=== PATIENT | male | born 1960 | race African-American/Black ===

== ENCOUNTER 2017-02-15 13:20 | Day surgery (SDC) | payer OTHER ==
[2017-02-12 10:24] VITALS: BMI 29.7
[2017-02-15 13:45] VITALS: TEMP 98.1
[2017-02-15] MEDS ORDERED: LIDOCAINE HCL 1%, 10 MG/ML (20ML VIAL) ONE (14:23)
--- NOTE | 2017-02-15 14:38 | HP ---
Satellite PMH - Chief Complaint History of Present Illness: 56 year old man with renal transplant and old HeRO graft in left arm which is now thrombosed. Recent Cr 1.4 History Source: Patient Limitations to Obtaining History: No Limitations - Past Medical History Allergies/Adverse Reactions: Allergies Allergy/AdvReac Type Severity Reaction Status Date / Time No Known Drug Allergies Allergy Verified 02/12/17 10:24 Cardiovascular: Yes: HTN Pulmonary: Yes: Pulmonary Embolus, Other Hepatobiliary: Yes: Hepatitis C Renal/: Yes: Renal Failure Heme/Onc: Yes: Anemia - Current Medications Current Medications: Home Medications Medication Instructions Recorded Simvastatin [Zocor -] 20 mg PO HS 08/30/14 Methadone [Dolophine -] 70 mg PO DAILY 08/31/14 Aspirin [Aspirin EC] 81 mg PO DAILY 02/12/17 Famotidine [Pepcid] 20 mg PO DAILY 02/12/17 Hydrochlorothiazide [Hctz -] 12.5 mg PO DAILY 02/12/17 Isosorbide Mononitrate [Imdur -] 30 mg PO DAILY 02/12/17 Metoprolol Succinate [Toprol Xl] 25 mg PO BID 02/12/17 Mycophenolate Mofetil [Cellcept -] 1,000 mg PO BID 02/12/17 Nifedipine [Procardia Xl] 60 mg PO HS 02/12/17 Prednisone [Deltasone -] 5 mg PO DAILY 02/12/17 Sitagliptin Phos/Metformin HCl 1 each PO DAILY 02/12/17 [Janumet Xr 50-1,000 mg Tablet] Tacrolimus [Astagraf Xl] 0.5 mg PO BID 02/12/17 Tacrolimus [Prograf] 1 mg PO BID 02/12/17 Tamsulosin HCl [Flomax] 0.4 mg PO DAILY 02/12/17 Warfarin Na [Coumadin -] 4 mg PO HS 02/12/17 Satellite Physical Exam - Physical Examination Vital Signs: Vital Signs Period Temp Pulse Resp BP Sys/Levin Pulse Ox Last 24 Hr 98.1 F 67 20 137/70 95 General Appearance: Alert & Oriented x3 ENT: Clear Lung: Clear to auscultation Heart: Regular rate & rhythm Abdomen: Soft Extremities: No edema Satellite Impression/Plan - Impression/Plan Impression: Renal transplant recipient Operative Procedure: Removal of HeRO catheter Date to be Performed: 02/15/17
[2017-02-15] MEDS ORDERED: LIDOCAINE HCL 1%, 10 MG/ML (20ML VIAL) NR ONE ×2 (14:48)
--- NOTE | 2017-02-15 15:14 | OP ---
Operative Note - Note: Operative Date: 02/15/17 Pre-Operative Diagnosis: Renal transplant recipient Operation: Removal HeRO catheter Findings: Patent HeRO catheter, occluded graft right upper arm Post-Operative Diagnosis: Same as Pre-op Surgeon: Brayden Jean Anesthesia: Local Specimens Removed: HeRO catheter Estimated Blood Loss (mls): 10 Operative Report Dictated: Yes
[2017-02-15] MEDS ORDERED: ACETAMINOPHEN 325 MG TABLET (FP) PO PRN (15:18)
[2017-02-15 15:46] VITALS: BP 129/60; PULSE 57
--- NOTE | 2017-02-16 13:10 | OP ---
DATE OF OPERATION: 02/15/2017 SURGEON: Brayden Jean MD PROCEDURE: Removal of HeRO catheter from left chest wall. PREOPERATIVE DIAGNOSIS: Renal transplant recipient. POSTOPERATIVE DIAGNOSIS: Renal transplant recipient. ANESTHESIA: Local. FINDINGS: The HeRO grafting catheter in the left arm and shoulder area were occluded. There was no evidence of infection. OPERATIVE PROCEDURE: Following routine patient identification with site and side verification, the left shoulder and upper arm were prepped with ChloraPrep. Time-out was performed. Then 1% lidocaine was infiltrated over the HeRO adapter and catheter in the area of the deltopectoral groove. Skin incision was made and carried down to the subcutaneous tissues using cautery for hemostasis. The catheter and adapter were identified and carefully mobilized from the surrounding tissues. The connective tissue sheath around the catheter was left intact, and a 2-0 Vicryl tie was placed around the sheath and left untied. The adapter was then elevated, and the distal attachment to the graft was clamped on the graft site and transected. The adapter and the catheter were then removed and the previously placed suture tied securely to prevent any back bleeding along the tract. A 2nd suture was placed. The graft end was then checked, and there was no bleeding from this end as the graft was previously thrombosed. The wound was then closed with interrupted suture of 3-0 Vicryl and a running subcuticular suture of 4-0 Biosyn on the skin. Sterile dressing was applied, and the patient was taken to the [facility] in stable condition. [place] GEORGE/[id number]
--- NOTE | 2017-02-18 10:20 | PATH ---
Surgical Pathology Report Patient Name: TISH JONES Med. Rec. #: [id number] /Age/Gender: 1960 (Age: 56) / M Account: [id number] Location: [facility] Taken: 02/15/2017 Received: 02/16/2017 Reported: 02/18/2017 Physicians: Brayden Jean M.D. Specimen(s) Received HERO GRAFT CATHETER LEFT ARM Clinical History Status post renal transplant Final Diagnosis CLINICAL RECRUITER, LEFT ARM, REMOVAL: VASCULAR CATHETER (GROSS ONLY). Electronically Signed Archie Slaon M.D. Gross Description Received fresh labeled "Hero graft catheter removed left arm," is a 31.5 cm in length portion of tubing with a focal defect. No soft tissue is present. No sections are submitted, gross only. 02/16/2017 saudi02/16/2017
== END 2017-02-15 15:50 | disposition home or self-care (01) ==
LOC: JASU-SURG 13:20
PROVIDERS: ATTEND Surgery
PROC: 0JPV0WZ Removal of Totally Implantable Vascular Access Device from Upper Extremity Subcutaneous Tissue and Fascia, Open Approach (ICD-10-PCS; principal; 2017-02-15 14:30)
DX: Z45.2 Encounter for adjustment and management of vascular access device (principal); Z94.0 Kidney transplant status
CPT/HCPCS: 88300-TC